=== PATIENT | female | born 1945 | race Caucasian/White ===

== ENCOUNTER 2017-09-24 19:57 | Emergency (ER) | payer OTHER ==
[~2017-09-24] VITALS: Ht 157.5 cm; Wt 98.4 kg
[2017-09-24 20:47] VITALS: BP 155/88
== END 2017-09-24 20:47 | disposition home or self-care (01) ==
LOC: ED 19:57
DX: S60.212A Contusion of left wrist, initial encounter (principal); I10 Essential (primary) hypertension; Z88.5 Allergy status to narcotic agent; Z88.2 Allergy status to sulfonamides; Z91.018 Allergy to other foods; X58.XXXA Exposure to other specified factors, initial encounter; Y93.89 Activity, other specified; Y92.89 Other specified places as the place of occurrence of the external cause; Y99.8 Other external cause status

== ENCOUNTER 2018-08-07 20:40 | Emergency (ER) | payer OTHER ==
[~2018-08-07] VITALS: Ht 157.5 cm; Wt 91.2 kg
[2018-08-07 20:55] VITALS: Ht 157.5 cm; Wt 91.2 kg
[2018-08-07 21:54] LABS: BASOPHIL % 0.4 % (0-2); PLATELET COUNT 351 x10^3mcL (130-400); RED CELL DISTRIBUTION WIDTH 16.9 % (11.5-14.5)
[2018-08-08 00:53] VITALS: BP 116/64
== END 2018-08-08 00:56 | disposition home or self-care (01) ==
LOC: ED 20:40
PROVIDERS: Emergency Medicine
DX: D25.9 Leiomyoma of uterus, unspecified (principal); D50.9 Iron deficiency anemia, unspecified; M47.9 Spondylosis, unspecified; I10 Essential (primary) hypertension; E11.9 Type 2 diabetes mellitus without complications; Z88.2 Allergy status to sulfonamides; Z88.1 Allergy status to other antibiotic agents
CPT/HCPCS: 36415; J1885; Q0092

== ENCOUNTER 2018-10-27 09:20 | Inpatient (IN) | payer OTHER ==
[~2018-10-27] VITALS: Ht 157.5 cm; Wt 86.2 kg
--- NOTE | 2018-10-27 09:27 | NUR ---
PT BIB [facility]62 FROM HOME FOR GENERALIZED WEAKNESS/SOB.HAS RT AC S.L. # 18 GAUGE,300 ML BOLUS DONE BY EMS UNIT.RECENT URI,BUT PT STATES SHE DID NOT TAKE RX ANTIBIOTIC PER EMS PERSONNEL.AWAITS ER MD evaluations/assessments.joshua,eva
--- NOTE | 2018-10-27 09:36 | NUR ---
SANAM shaw at bedside for evaluations/assessments.eva lewis.
--- NOTE | 2018-10-27 09:40 | NUR ---
DR MILLER NOTIFIED THAT PT MEETS SIRS (HR 111, RR 40) & ORGAN DYSFUNCTION (MAP 62). PT HAS 2 IV'S & IS ON FULL MONITORS.
[2018-10-27 09:41] VITALS: Ht 157.5 cm; Wt 86.2 kg
--- NOTE | 2018-10-27 09:57 | NUR ---
RESTING ER 3 04 HOB 2 45 DEGREES SR UP,AAO,NAD.MONITORS ON.PT TOLERATED PROCEDURES WITH NO INCIDENTS.ADULT ASMITA DALY AT BEDSIDE.AWAITS TEST RESULTS,REEVALUATIONS.
--- NOTE | 2018-10-27 10:04 | NUR ---
BED TO TRENDELENBERG POSITION,V.O. BY ER BOLUS NS.AWAITS REEVALUATIONS.
--- NOTE | 2018-10-27 10:05 | NUR ---
N/C INCREASED TO 3 LPM FLOW.
--- NOTE | 2018-10-27 10:05 | NUR ---
INDWELLING FUENTES INSERTION BY HECTOR MARTÍNEZ/BIPIN RN.PT TOLERATED PROCEDURESD WITHJ NO INCIDENTS.AWAITS REEVALUATIONS.ASLEEP AT THIS TIME.ADULT NIARIN DALY BEDSIDE.
[2018-10-27 10:09] LABS: BASOPHIL % 0.3 % (0-2); PLATELET COUNT 369 x10^3mcL (130-400)
[2018-10-27 10:12] LABS: RED CELL DISTRIBUTION WIDTH 20.5 % (11.5-14.5)
[2018-10-27 10:18] LABS: rbc morphology (normal/abnorm) ABNORMAL (NORMAL)
[2018-10-27 10:19] LABS: CALCIUM 9.8 mg/dL (8.5-10.1); CARBON DIOXIDE 20.6 mmol/L (21-32); CHLORIDE SERUM 106 mmol/L (98-107); CREATININE SERUM 1.1 mg/dL (0.6-1.0); GLUCOSE SERUM 162 mg/dL (74-106); POTASSIUM SERUM 3.5 mmol/L (3.5-5.1); SODIUM SERUM 141 mmol/L (136-145)
--- NOTE | 2018-10-27 10:21 | NUR ---
ULTRASOUND TEST BEDSIDE IN PROGRESS.CONNER FRAZIER.MONITORS ON.AWAITS REEVALUATIONS.
[2018-10-27 10:32] LABS: ALKALINE PHOSPHATASE 86 U/L (46-116); ALT/SGPT 11 U/L (14-59); AST/SGOT 29 U/L (15-37); BILIRUBIN TOTAL 0.67 mg/dL (0.20-1.00); HDL CHOLESTEROL 36 mg/dL (40-60); LIPASE 66 IU/L (73-393); MAGNESIUM 1.9 mg/dL (1.8-2.4); T4(THYROXINE) 4.7 ug/dL (4.7-13.3); TOTAL PROTEIN, SERUM 6.7 g/dL (6.4-8.2)
[2018-10-27 10:34] LABS: ALBUMIN 1.9 g/dL (3.4-5.0); CHOLESTEROL 99 mg/dL (<200)
--- NOTE | 2018-10-27 10:49 | NUR ---
DR. MILLER NOTIFIED THAT PT NOW MEETS SEPTIC SHOCK CRITERIA, LACTIC ACID=5.3.
--- NOTE | 2018-10-27 10:50 | NUR ---
PT TURNED TO RT SIDE,PILLOW TO BACK AREA.PT TOLERATED PROCEDURES WITH NO INCIDENTS.AWAITS REEVALUATIONS.
--- NOTE | 2018-10-27 11:03 | NUR ---
addendum:per tejinder souza while inserting escobar catheter she noticed discharge/urethraal area pus.er md made aware.
--- NOTE | 2018-10-27 11:30 | NUR ---
PT TO CT TEST AREA VIA KARIN FLETCHER NAD.AWAITS REEVALUATIONS.
--- NOTE | 2018-10-27 11:45 | NUR ---
SANAM OLIVO AT BEDSIDE FOR REEVALUATIONS.CONNER FRAZIER.MONITORS BACK ON.BACK FROM CT TEST AREA.AWAITS REEVALUATIONS.HEMAL TIAN BEDSIDE.
--- NOTE | 2018-10-27 11:50 | NUR ---
STILL NO URINE OUTPUT,vanessa shaw made aware.
--- NOTE | 2018-10-27 11:53 | NUR ---
PT TRANSFERRED TO TR#01 ROOM FOR SPECIAL PROCEDURE.CONNER FRAZIER.MONITORS ON.LINN AT BEDSIDE,ASMITA.
[2018-10-27] MEDS ORDERED: METFORMIN HCL1000 MG PO (12:13)
[2018-10-27] MEDS ORDERED: GLUCOTROL5 MG PO (12:13)
[2018-10-27] MEDS ORDERED: LISINOPRIL10 MG PO (12:13)
[2018-10-27] MEDS ORDERED: LIPI10 PO (12:13)
--- NOTE | 2018-10-27 12:14 | NUR ---
PT KNEW MED NAMES BUT NOT DOSAGES. [facility] [phone] FOR DOSAGES. MED REC COMPLETED.
--- NOTE | 2018-10-27 12:24 | NUR ---
CENTRAL LINE INSERTION BY SANAM OLIVO/ in progress assisted by raul godinez.eva lewis.monitors on.awaits reevaluations.
--- NOTE | 2018-10-27 12:50 | NUR ---
RT SUBCLAVIAN AREA CENTRAL LINE BYU SANAM OLIVO DONE.PT TOLERATED PROCEDURES WITH NO INCIDENTS.BLAIRO,NAD.ADULT ASMITA LINN AT BEDSIDE.AWAITS BED ASSIGNMENT,REEVALUATIONS.
--- NOTE | 2018-10-27 13:35 | NUR ---
ATTEMPTED TO GIVE FLOOR REPORT,RHONA MARTÍNEZ IS TALKING TO AN MD AND WILL CALL ME BACK.ERISA ATTORNEYOXYGRAPH OPERATOR MADE AWARE.
--- NOTE | 2018-10-27 13:46 | NUR ---
PT ENDORSED TO/ACCEPTED BY RHONA MARTÍNEZ.AWAITS TRANSPORT SERVICES,REEVALUATIONS.
--- NOTE | 2018-10-27 13:52 | NUR ---
PRINCE URINE IN FUENTES TUBING ONLY, ABLE TO COLLECT SAMPLE VIA PORT, SENT TO LAB BY DANTE MARTÍNEZ.
--- NOTE | 2018-10-27 13:54 | NUR ---
RECEIVED PT FROM ED VIA GUERNEY ACCOMPANIED BY RN AND RESIDENCE LIFE DIRECTOR. PT AAOX4. FOLLOWS COMMANDS. NO FACIAL DROOP. SPEECH IS CLEAR AND APPROPRIATE. PERRL. GLASSES ON PT. EENT FREE OF DISCHARGE. TRACHEA MIDLINE. NO JVD PRESENT. ON ROOM AIR. RESPIRATIONS ARE EVEN AND UNLABORED. NO ADVENTITIOUS LUNG SOUNDS AUSCULTATED. SYMMETRICAL CHEST WALL EXPANSION NOTED. PT HAS A RIGHT SUBCLAVIAN TLC CVC INTACT, X3 PORTS PATENT, DRESSING CDI. MOD PALPABLE PULSES TO BUE, WEAK PULSES TO BLE. CLUBBING TO FINGERNAILS NOTED. SKIN IS WARM/DRY TO TOUCH, PALE IN COLOR. +3 PITTING EDEMA NOTED TO BLE. ABD IS SOFT, SYMMETRICAL, AND ROUNDED. ABD SOUNDS AUSCULTATED X4. NO BM AT THIS TIME. PIV TO L AC AND R AC INTACT, PORTS PATENT, DRESSINGS CDI. F/C INTACT AND DRAINING VIA GRAVITY. NO URINE OUTPUT AT THIS TIME. VAGINAL PINK/PUS-LIKE DRAINAGE NOTED. JOINTS INTACT. GENERALIZED WEAKNESS NOTED. NO CONTRACTURES. FULL ROM TO BUE AND BLE.
[2018-10-27 14:19] VITALS: BP 114/70
[2018-10-27 14:21] LABS: UA SPECIFIC GRAVITY 1.015 (1.005-1.035); microscopic required? YES; urine erythrocyte 3+ (NEGATIVE)
[2018-10-27 14:22] LABS: AMPHETAMINE QUAL UR NONE DETECTED (See below)
--- NOTE | 2018-10-27 14:25 | NUR ---
PAGED DR RIVERA AT THIS TIME FOR ORDERS.
[2018-10-27 15:27] VITALS: BP 111/60
--- NOTE | 2018-10-27 16:10 | NUR ---
PT STATING 8/10 ACHING PAIN TO HER LOWER BACK. MEDICATED WITH MORPHINE PER EMAR. WILL CONT TO MONITOR.
--- NOTE | 2018-10-27 16:10 | NUR ---
PATIENT C/O BACK PAIN 11/03 ACHINING. ADMINISTER MORPHINE 4 MG IVP FOR PAIN.
--- NOTE | 2018-10-27 17:52 | NUR ---
6900 UNIT BOLUS OF HEPARIN GIVEN. HEPARIN GTT INITIATED @ 1500 UNITS/HR PER HEPARIN GTT PROTOCOL. PTT AND PT ORDERED FOR MIDNIGHT /.
--- NOTE | 2018-10-27 18:00 | NUR ---
PT PLACED ON 2L NASAL CANNULA DUE TO O2 SAT OF 90-92%.
--- NOTE | 2018-10-27 19:15 | NUR ---
RECEIVED REPORT FROM RHONA MARTÍNEZ. WILL RESUME CARE.
[2018-10-27 19:25] VITALS: BP 102/65
--- NOTE | 2018-10-27 19:25 | NUR ---
RECEIVED PT AAOX4, SPECH CLEAR. ABLE TO VERBALIZE NEEDS AND FOLLOW COMMANDS. PUPILS 3MM BRISK. ON 2L NC, 02SAT 97%. BREATHING E/U. LUNG SOUNDS CLEAR TO UPPER LOBES AND DIMINISHED TO BASES. S1S2 AUSCULTATED WITH NO MURMURS NOTED. PT STATES NO PAIN AT THIS TIME. R SUBLAVIAN CVC, TRIPLE LUMEN PATENT, WNL. R AND L AC IV SITES WNL, DRESSINGS CDI. NS INFUSING AT 80CC/HR. HEPARIN GTT INFUSING AT 1500U/HR. PULSES MODERATE TO BUE AND WEAK TO BLE. +3 PITTING EDEMA NOTED TO BLE. SKIN CDI. ABDOMEN DISTENDED WITH SOME TENDERNESS. BS HYPOACTIVE X 4. NO BM AT THIS TIME. FUENTES CATHETER IN PLACE DRAINING VIA GRAVITY PRINCE URINE. BED IN LOW POSITION. CALL LIGHT WITHIN REACH. WILL CONTINUE TO MONITOR.
--- NOTE | 2018-10-27 19:27 | NUR ---
REPORT GIVEN TO ONDINA MARTÍNEZ. ALL QUESTIONS ANSWERED AND ADDRESSED. WILL ENDORSE CARE.
--- NOTE | 2018-10-27 22:04 | NUR ---
CLEANED PT. COPIOUS AMOUNT OF PINK TINGED DISCHARGE NOTED, FOUL SMELLING. PROVIDED PERINEAL CARE, NEW CHUCKS PLACED UNDER PT, AND GOWN CHANGED.
--- NOTE | 2018-10-27 23:12 | NUR ---
PT C/O 4/10 ABDOMINAL PAIN. GAVE NORCO 5/325MG PO 1 TAB. WILL REASSESS FOR RELIEF OF PAIN.
[2018-10-27 23:15] VITALS: BP 109/58
--- NOTE | 2018-10-27 23:54 | NUR ---
CLOTH WASHER BACK TENDER AT BEDSIDE FOR BLOOD DRAW.
--- NOTE | 2018-10-28 01:20 | NUR ---
PTT 95.3. HEPARIN GTT TURNED OFF AND WILL HOLD FOR 1 HOUR PER PROTOCOL.
--- NOTE | 2018-10-28 02:20 | NUR ---
HEPARIN GTT TURNED BACK ON AT 1200U/HR PER PROTOCOL.
--- NOTE | 2018-10-28 02:32 | NUR ---
UPDATES ON PT STATUS PROVIDED TO DR. RIVERA OVER PHONE. PER MD ORDER PT IS TO BE TRANSFERRED TO MED/SURG TELE.
--- NOTE | 2018-10-28 02:32 | NUR ---
PAINTER PLATE REQUESTED THAT DR. RIVERA BE CONTACTED TO SEE IF PT CAN BE TRANSFERED UPSTAIRS SO THAT WE ARE ABLE TO ADMIT A PT FROM ED. DR. RIVERA CONTACTED. UPDATES PROVIDED ON PT STATUS. DR. RIVERA GAVE OKAY FOR PT TRANSFER TO MED/SURG TELE.
--- NOTE | 2018-10-28 03:04 | NUR ---
GAVE REPORT TO SEAN MARTÍNEZ FOR PT TRANSFER TO MED/SURG TELE. ALL QUESTIONS AND CONCERNS ADDRESSED.
[2018-10-28 03:20] VITALS: BP 120/65
--- NOTE | 2018-10-28 03:30 | NUR ---
REC'D PT FROM ICU ACCOMPANIED BY NURSES X2. PT TRANSFERRED FROM BED TO BED WITH 6 PERSON ASSIST. AAOX4, SPEECH CLEAR, FOLLOWS COMMANDS. WEARING GLASSES. TELE 17, SA, HR 92. DENIES CP, DIZZINESS, OR PALPITATIONS. DENIES RESP DISTRESS OR SOB. BREATHING EVEN/UNLABORED ON 2L O2 VIA NC, SPO2 92%. NO COUGH NOTED. PITTING EDEMA BLE 3+. ABD SOFT/ROUND/DISTENDED. TENDER TO PALPATION. DENIES N/V. FUENTES DRAINING PRINCE URINE TO GRAVITY. LARGE AMT OF PINK VAGINAL DISCHARGE, ODORUS. BAMBI AND FUENTES CARE PROVIDED. GEN WEAKNESS. ASSIST WITH REPOSITIONING. R SUBCLAVIAN CENTRAL LINE. HEPARIN GTT @ 1200 UNITS/HR INFUSING TO BLUE PORT. OTHER TWO PORTS FLUSHED AND PATENT. IV TO RAC INFUSING NS @ 80 ML/HR. IV TO LAC FLUSHED AND PATENT. ALL IV SITES WNL. NOTED ULCERS X3 TO SACRAL AREA. X2 NONDRAINING. X1 (LARGEST AND MOST INFERIOR) WITH MINIMAL SEROSANGUINEOUSS FLUID. CLEANED WITH NS, WOUND CULTURE OBTAINED, PICTURE TAKEN, OPTIFOAM AND AIR MATTRESS APPLIED. ORIENTED TO DEVICES AND SURROUNDINGS. CALL LIGHT WITHIN REACH, BED AT LOWEST POSITION. WILL CONTINUE TO MONITOR.
--- NOTE | 2018-10-28 04:23 | NUR ---
PT C/O CONSTANT, THROBBING LOWER BACK 5/10. NORCO GIVEN PER ORDER. WILL MONITOR FOR RELIEF.
[2018-10-28 05:32] VITALS: BP 103/69
[2018-10-28 06:02] LABS: PLATELET COUNT 263 x10^3mcL (130-400)
[2018-10-28 06:39] LABS: CALCIUM 8.5 mg/dL (8.5-10.1); CARBON DIOXIDE 19.4 mmol/L (21-32); CHLORIDE SERUM 107 mmol/L (98-107); CREATININE SERUM 1.4 mg/dL (0.6-1.0); GLUCOSE SERUM 174 mg/dL (74-106); POTASSIUM SERUM 4.6 mmol/L (3.5-5.1); SODIUM SERUM 141 mmol/L (136-145)
[2018-10-28 07:00] LABS: BASOPHIL % 0 % (0-2); RED CELL DISTRIBUTION WIDTH 20.9 % (11.5-14.5)
[2018-10-28 07:01] LABS: rbc morphology (normal/abnorm) ABNORMAL (NORMAL)
--- NOTE | 2018-10-28 07:05 | NUR ---
RECIEVED PT RESTING IN BED WITH NO C/O PAIN, DISTRESS, OR SOB. A/OX4 WITH NO SARAVIA OR DIZZINESS.TELE MONITOR #17 CONNECTED TO PT, RHYTHM SR W/ INVERTED T WAVE, DR RIVERA NOTIFIED. PT DENIES ANY CP OR PRESSURE. HEPARIN DRIP INTACT AND PATENT GOING AT 1200 U/HR IN RIGHT SUBCLAVIAN SITE. IV IN RAC WITH NS AT 80/HR, INTACT AND PATENT WITH NO REDNESS OR INFLAMMATION. LAC REMOVED WITH CATHETER INTACT AND NO REDNESS OR INFLAMMATION NOTED. FUENTES INTACT AND DRAINING. SACRAL WOUNDS X3 NOTED AND PICS TAKEN, WOUND CONSULT PENDING. SAFETY PRECAUTIONS IN PLACE, CALL LIGHT WITHIN REACH, WILL MONITOR.
[2018-10-28 08:27] VITALS: BP 141/74
--- NOTE | 2018-10-28 09:18 | NUR ---
PT PTT AT 40.6, GAVE 3400 U BOLUS AND INCREASED DRIP TO 1400 U/HR PER EMAR. ENTERED NEW ORDER FOR PTT LAB DRAW AT 1330. WILL F/U.
--- NOTE | 2018-10-28 11:57 | NUR ---
LAC IV REMOVED WITH CATHETER INTACT. NO REDNESS OR INFLAMATION NOTED.
[2018-10-28 12:31] VITALS: BP 11/81
--- NOTE | 2018-10-28 14:20 | NUR ---
RECIEVED PT PTT RESULT OF 55.1, NO CHANGE NEEDED PER HEPARIN PROTOCAL. NEW ORDER FOR PTT LAB DRAW PUT IN FOR 1819. WILL F/U.
[2018-10-28 17:07] VITALS: BP 126/64
--- NOTE | 2018-10-28 17:31 | NUR ---
PT STABLE AT THSI TIME WITH NO C/O PAIN, DISTRESS, OR SOB. A/OX4 WITH NO SARAVIA OR DIZZINESS. TELE #17 CONNECTED TO PT, DENIES CP OR PRESSURE. SKIN KEPT CLEAN AND DRY ALL SHIFT, OPTIFOAM APPLIED TO COCCYX AREA. NS RUNNING 80/HR IN RAC, INTACT AND PATENT WITH NO REDNESS OR INFLAMMATION. RIGHT SUBCLAVIAN CENTRAL L;INE WITH 3 PORTS INTACT AND PATENT, NO REDNESS OR INFLAMMATION, HEPARIN DRIP RUNNING AT 1400 U/HR IN CENTRAL LINE. FUENTES CATHETER IN PLACE AND DRAINING PRINCE COLORED URINE. ALL CARES TOLERATED WELL.DENIES BURING OR PAIN. SAFETY PRECAUTIONS IN PLACE, CALL LIGHT WITHIN REACH, FAMILY AT BEDSIDE, WILL ENDORSE CARE TO NIGHT NURSE.
--- NOTE | 2018-10-28 17:48 | NUR ---
PT REPORTS 8/10 LOWER BACK PAIN AND HIP PAIN. MEDICATED WITH NORCO PER EMAR, WILL REASSES.
--- NOTE | 2018-10-28 18:07 | NUR ---
PT PAIN LEVEL DOWN TO 4/10. PT STABLE.
--- NOTE | 2018-10-28 19:07 | NUR ---
PTT 50.7, THERAPEUTIC X2. PTT ORDERED FOR 10/29 @ 0500 PER PROTOCOL. HEPARIN GTT INFUSING @ 1400 UNITS/HR.
--- NOTE | 2018-10-28 19:30 | NUR ---
REC'D PT FROM DAY NURSE. PT RESTING IN BED. AAOX4, SPEECH CLEAR, FOLLOWS COMMANDS. FORGETFUL. TELE 17. DENIES CP, DIZZINESS, OR PALPITATIONS. DENIES SOB AT THIS TIME. BEDREST. SPO2 94% ON 1.5L NC. PITTING EDEMA BLE ELEVATED WITH PILLOWS. ABD SOFT/ROUND/DISTENDED. GENERALIZED TENDERNESS UPON PALPATION. DENIES PAIN AT REST. GEN WEAKNESS. FULL PASSIVE ROM. REPOSITIONING Q2H, AIR MATTRESS IN PLACE. FOLELY DRAINING URINE TO GRAVITY. LARGE AMT OF PINK VAGINAL DISCHARGE, ODORUS. PAD IN PLACE. OPTIFOAM TO SACRAL-COCCYX CDI. IV TO RAC FLUSHED AND PATENT. CENTRAL LINE TO R UPPER CHEST INFUSING HEPARIN @ 1400 UNITS/HR AND NS @ 80 ML/HR. BROWN PORT FLUSHED AND PATENT. SITES WNL. CALL LIGHT WITHIN REACH, BED AT LOWEST POSITION, SIDE RAILS UP X3. WILL CONTINUE TO MONITOR.
--- NOTE | 2018-10-28 19:38 | NUR ---
SPOKE TO RADIOLOGY REGARDING CT GUIDED BIOPSY IN AM. STATED WILL CHECK TIME OF PROCEDURE AND CALL BACK.
--- NOTE | 2018-10-28 19:46 | NUR ---
REC'D CALL BACK FROM [facility], RADIOLOGY DEPT. INFORMED PROCEDURE SHOULD BE DONE AT THE EARLIEST 7 OR 8 AND DEPENDS ON THE NUMBER OF CASES. SANDWICH BOARD CARRIER FOR DR. RIVERA, DR. CHELO SUAREZ. AWAITING CALL BACK.
--- NOTE | 2018-10-28 20:11 | NUR ---
REC'D CALL BACK FROM DR. WHITNEY. ORDERED TO HOLD HEPARIN GTT 6 HOURS PRIOR TO PROCEDURE, PT/INR, AND NPO AFTER MN. PER GRAIN I FARMWORKER, RADIOLOGIST TYPICALLY DOES NOT COME UNTIL 1000. WILL HOLD HEPARIN @ 0400.
[2018-10-28 20:37] VITALS: BP 114/74
--- NOTE | 2018-10-29 00:52 | NUR ---
PT RESTING IN BED WITH EYES CLOSED. NO SIGNS OF DISTRESS NOTED. BREATHING EVEN/UNLABORED ON 1.5L O2 VIA NC. HOB UP 30 DEGREES. CALL LIGHT WITHIN REACH, BED AT LOWEST POSITION, BED ALARM ON. WILL CONTINUE TO MONITOR.
--- NOTE | 2018-10-29 04:01 | NUR ---
HEPARIN GTT HELD PER ORDER.
[2018-10-29 05:27] VITALS: BP 116/69
--- NOTE | 2018-10-29 06:38 | NUR ---
PT AWAKE AND RESTING IN BED. NO SIGNS OF DISTRESS NOTED. BREATHING EVEN/UNLABORED ON 1.5L NC. DENIES PAIN. HEPARIN GTT ON HOLD. PT NPO SINCE MN. CT GUIDED BIOPSY TODAY. FUENTES CARE PROVIDED. PT CLEANED WITH CHG WIPES. CALL LIGHT WITHIN REACH, BED AT LOWEST POSITION. WILL ENDORSE TO DAY NURSE
[2018-10-29 06:48] LABS: PLATELET COUNT 311 x10^3mcL (130-400)
[2018-10-29 07:02] LABS: CALCIUM 8.7 mg/dL (8.5-10.1); CARBON DIOXIDE 18.7 mmol/L (21-32); CHLORIDE SERUM 107 mmol/L (98-107); GLUCOSE SERUM 130 mg/dL (74-106); POTASSIUM SERUM 3.7 mmol/L (3.5-5.1); SODIUM SERUM 140 mmol/L (136-145)
[2018-10-29 07:05] LABS: RED CELL DISTRIBUTION WIDTH 21.2 % (11.5-14.5)
--- NOTE | 2018-10-29 07:30 | NUR ---
RECEIVED BEDSIDE REPORT, SEEN PATIENT AWAKE,ALERT, ORIENTED X4. NO SOB, DENIES, ON TELE#17, ST WY=[id number]. DENIES CHEST PAIN. GEN BODY WEAKNESS. ON AIRLOSS MATTRESS. TLC TO RIGHT SUBCLAVIAN WITH NS INFUSING AT 80ML/HR. S/L TO RAC INTACT AND PATENT. KEPT NPO FOR CT ABD/PELVIC AND CT GUIDED BIOPSY OF UTERINE MASS. PATIENT MADE AWARE OF PROCEDURE. FUENTES CATH DRAINING TO GRAVITY. OPTIFOAM TO SACRAL INPLACE ( ULCER X3 TO SACRAL-COCCYX AREA). HEPARIN DRIPS ON HOLD AT THIS TIME PER DOCTOR'S ORDER. PLAN OF CARE DISCUSSED. CALL LIGHT PLACED WITHIN EASY REACH. SIDERAILS UP X2.
--- NOTE | 2018-10-29 07:48 | NUR ---
RECEIVED A CALL FROM REDIOLOGY STAFF STATED THAT CT GUIDED BIOPSY OF UTERINE MASS CAN NOT BE DONE HERE IN [place] BY RADIOLOGIST. DOCTOR NICOLE WILL BE NOTIFIED BY RADIOLOGIST STAFF.
--- NOTE | 2018-10-29 08:07 | NUR ---
RECEIVED ORDER FOR CT GUIDED BIOPSY, SITE NOT SPECIFIED. DR ABBOTT SPOKE WITH DR RIVERA BY PHONE REGARDING FEASIBILITY OF UTERINE OR LUNG BIOPSY. PROCEDURE DECLINED BY RADIOLOGIST DR ABBOTT.
--- NOTE | 2018-10-29 08:11 | NUR ---
PATIENT'S NURSE PB NOTIFIED R/T BIOPSY CANCELLED.
--- NOTE | 2018-10-29 08:30 | NUR ---
NOTED VIGINAL DISCHARGE BROWISH IN COLOR AND ODORUS, PERINEAL AREA CLEANED, NEW CHUCKS CHANGED.
[2018-10-29 08:33] LABS: BAND NEUTROPHIL 1 % (0-10); BASOPHIL 0 % (0-2); PLATELET MORPHOLOGY PLATELETS DECREASED; SEGMENTED NEUTROPHILS 98 % (37-75)
[2018-10-29 08:35] LABS: rbc morphology (normal/abnorm) ABNORMAL (NORMAL)
--- NOTE | 2018-10-29 08:53 | NUR ---
OFF FLOOR FOR CT SCAN VIA BED, NO ANY DISTRESS NOTED.
[2018-10-29 09:14] VITALS: BP 133/68
--- NOTE | 2018-10-29 09:55 | NUR ---
RECEIVED BACK FROM CT SCAN VIA BED, NO ANY DISTRESS NOTED. DENIES PAIN. PERICARE PROVIDED, NEW CHUCKS CHANGED, REPOSITIONED. HEPARIN DRSIP RESUMED PER PROTOCAL INFUSING AT 1400UNITS/HR AT THIS TIME TO WHITE PORT. NS AT 80ML/HR INFUSING WELL TO BLUE PORT, BROWN PORT FLUSHED PATENT. KEPT COMFORTABLET. CALL LIGHT PLACED WITHIN EASY REACH, SIDERAILS UP X2.
--- NOTE | 2018-10-29 10:00 | NUR ---
NOTED ODORUS, BROWISH DISCHARGE FROM VIGINA, PERINEAL CARE PROVIDED, NEW CHUCKS CHANGED, REPOSITIONED. DENIES PAIN AT THIS TIME.
[2018-10-29 12:03] VITALS: BP 131/70
--- NOTE | 2018-10-29 15:19 | NUR ---
Initial Nutrition Assessment: (250T-A) MARILEE JOHN 73F Dx: Septic shock PMHx: HTN, DM, Hernia repair, PSHx: Hernia repair, Labs: BG 130 H, BUN 30 H, Alb 1.9 L, ALT 11 L, HDL 36 L, Lipase 66 L, Trop 0.193 H, BNP 222.42 H, PTT 30.1 H Meds: Colace, Humulin, Reglan, Zorfan Diet: NPO exc Meds (CT guided biopsy) PO intake since admission: 10% Ht: 62in Wt: 190# BMI: 34.8 Bed scale: 213.3# IBW: 110# %IBW: 173% UBW: 174# Age: 73 Food Allergies: Kiwi, eggplant (per pt) Skin: sacral ulcers x3 optifoam inplace Raul: 16 Edema: BLE, DVT BLE, moderate pedal pulses palpable, on heparin drip per protocal GI: abd soft and distended Last BM: 10/26 RD Note (10/29): Nursing trigger recieved for -10# x 1mo, admitted for potential risk Dx. Per MD progress note, pt had ~50# wt loss x 3mo. Pt w/ poor PO, placed NPO for CT biopsy of abd and pelvis this AM. Visited pt bedside, pt states appetite is poor, sometimes just sees food and loses appetite. Pt does not seem to tolerate many foods, pt believes it may be psychological. Pt states her diet usually reliant on [employer] chicken noodle soup & Glucerna shakes @home; pt lives w/ niece. Pt stated multiple times she generally "does not care anymore". Pt admits is noncompliant w/ DM meds at home, and has only recently started to monitor BG @home r/t worsening condition/hospitalization. Pt also states has lost a significant amoutn of wt in the past 2 months, but also noticed her a good amount of swelling in her legs. Pt states swelling and pain getting better 1/10, but has some pain in lower abd region upon eating. Encouraged pt about better PO intake r/t hsopitalization and recovery, discussed w/ pt regarding ONS r/t wt loss and wound healing. Pt states did like the meatloaf that she was served, and also sometimes eats tacos that she buys outside home. Pt is agreeable to receiving ONSs for PO supplementation and wound healing. Per [facility] assessment 10/28, wound consult pending. Spoke w/ Dr Guerra and station 2 RN regarding ONS, confirmed. Problem with N/V/D/C: No Problems with: Chewing: No Swallowing: No Current appetite: poor Recent wt change: -38# x 2mo (per pt) %wt change: 18% Vitamin/Supplement use: Glucerna/DM nutrition supplements Special diet at home: Tolerates [employer] Chicken Noodle Soup & Glucerna @home Physical activity: N/A Nutrition education given (specify specific nutrition education and handout given): None given at this time. Food-drug interactions? Education given? None given at this time. Estimated Nutritional Needs Based on current body weight (86 kg) Energy: 1741-6513 kcal/day (25-30 kcal/kg for maintenance/prevent further wt loss) Protein: 86-103 g/day (1.0-1.2 g/kg to preserve LBM) Fluid: 4616-3961 mL/day (25-30 mL/kcal) or per MD Nutrition Diagnosis: Increased nutrient needs r/t wound healing, uninteded wt loss, poor PO, medical condition AEB sacral wound x3, -50# x 3mo (per MD progress note), -10# x 1mo (per nursing trigger), -38# x 2mo (per pt) Intervention 1. Add Glucerna vanilla TID w/ each meal 2. Add Tera BID 3. When cleared to start PO diet, [facility] Monitor/Evaluate Goal: PO intake at least 75% of estimated needs Monitor: PO intake, Labs, GI function F/U in 2-3 days as high risk 10/31-11/01
--- NOTE | 2018-10-29 15:20 | NUR ---
Recommendations: 1. Add Glucerna vanilla TID w/ each meal 2. Add Tera BID 3. When cleared to start PO diet, continue [facility] diet order
--- NOTE | 2018-10-29 16:11 | NUR ---
DOCTOR AT BEDSIDE, PATIENT AND NIECE MADE AWARE OF CURRENT CONDITION AND PLAN OF TRANSFER TO [facility] FOR SURGERY.
[2018-10-29 17:17] VITALS: BP 127/77
--- NOTE | 2018-10-29 17:39 | NUR ---
REPORT GIVEN VIA PHONE TO [facility], SPOKE TO TANYA LOPEZ. PATIENT WILL BE TRANSFERRED VIA ERNEY TO ROOM 351B.
--- NOTE | 2018-10-29 18:41 | NUR ---
ACCEPTING DOCTOR IS DOCTOR SERA CHAVIRA.
--- NOTE | 2018-10-29 19:50 | NUR ---
REPORT GIVEN TO [facility], ALL QUESTIONS ADDRESSED. PT IN NO ACUTE DISTRESS. TELE RETURNED TO SUPERVISOR WET ROOM. PT TRANSFERED BY TWO EMT VIA RSASABE, LEFT THE UNIT WITH NO DISTRESS.
--- NOTE | 2018-10-30 08:31 | NUR ---
WOUND CARE CONSULT NOT DONE, PT DISCHARGED.
== END 2018-10-29 19:51 | disposition short-term general hospital (02) | DRG 871 ==
LOC: ED 09:20 → DU 11:24 → IC 11:24 → DU 13:58 → IW 10-28 03:54 → IC 10-28 04:00 → IW 10-28 04:00 → DU 10-28 04:13
PROVIDERS: Emergency Medicine; ADMIT Internal Medicine Pulmonary Disease
PROC: 05H533Z Insertion of Infusion Device into Right Subclavian Vein, Percutaneous Approach (ICD-10-PCS; principal; 2018-10-27)
DX: A41.9 Sepsis, unspecified organism (principal); E43 Unspecified severe protein-calorie malnutrition; J96.01 Acute respiratory failure with hypoxia; I26.99 Other pulmonary embolism without acute cor pulmonale; R65.21 Severe sepsis with septic shock; I82.409 Acute embolism and thrombosis of unspecified deep veins of unspecified lower extremity; N39.0 Urinary tract infection, site not specified; C78.02 Secondary malignant neoplasm of left lung; C78.01 Secondary malignant neoplasm of right lung; C55 Malignant neoplasm of uterus, part unspecified; E11.9 Type 2 diabetes mellitus without complications; I10 Essential (primary) hypertension; E66.01 Morbid (severe) obesity due to excess calories; I48.0 Paroxysmal atrial fibrillation; Z68.31 Body mass index [BMI] 31.0-31.9, adult
CPT/HCPCS: 36600; 82962; 83880; G0378; J1644; J1940; J1956; J2270; J3490; J7030; Q0092; Q9967